=== PATIENT | male | born 1955 | race American Indian/Alaskan Native ===

== ENCOUNTER 2021-12-12 13:31 | Day surgery (SDC) | payer OTHER ==
[~2021-12-12] VITALS: Ht 167.6 cm; Wt 82.0 kg
[~2021-12-12 13:31] MED LIST: ASPI81CH; ATOR10 PO; HYDCHL25 PO; LOSA25 PO; METF500 PO; OMEP20ER PO
[2021-12-12] MEDS ORDERED: JARDIANCE10 MG (14:09)
== END 2021-12-12 15:12 | disposition home or self-care (01) ==
LOC: ORSCSDS 13:31
PROVIDERS: Surgery
PROC: 0DBN8ZX Excision of Sigmoid Colon, Via Natural or Artificial Opening Endoscopic, Diagnostic (ICD-10-PCS; principal; 2021-12-12 15:00)
DX: Z12.11 Encounter for screening for malignant neoplasm of colon (principal); Z86.010 Personal history of colon polyps; D12.5 Benign neoplasm of sigmoid colon; K57.30 Diverticulosis of large intestine without perforation or abscess without bleeding; E11.9 Type 2 diabetes mellitus without complications; K21.9 Gastro-esophageal reflux disease without esophagitis; E78.5 Hyperlipidemia, unspecified; I10 Essential (primary) hypertension; G47.33 Obstructive sleep apnea (adult) (pediatric); Z79.84 Long term (current) use of oral hypoglycemic drugs; Z79.899 Other long term (current) drug therapy
CPT/HCPCS: 82947; 88305; J0461; J2405; J2704; J7120